=== PATIENT | male | born 1980 ===

== ENCOUNTER 2018-05-04 18:44 | Emergency (ER) | payer SELFPAY ==
[2018-05-04 18:44] VITALS: BMI 23.3
[2018-05-04 19:09] VITALS: BP 135/87; PULSE 73; RESP 20; TEMP 97.8; O2SAT 98
[2018-05-04] MEDS ORDERED: Tdap Vaccine 0.5 ml Vial (10-64 yrs) IM ONE (19:44)
[2018-05-04] MEDS ORDERED: Tetracaine 0.5% Ophth 2 ML BOTTLE OD ONE (19:45)
[2018-05-04] MEDS ORDERED: Fluorescein 1 mg Ophthalmic Strip OD ONE (19:50)
--- NOTE | 2018-05-04 19:52 | C.PDOC ---
History Of Present Illness 37 y/o male c/o pain and redness to right eye since yesterday; pt sts he was cutting metal and got a piece in his eye. last tdap unk. Time Seen by Provider: 05/04/18 19:39 Chief Complaint (Nursing): Eye Problem History Per: Patient History/Exam Limitations: no limitations Onset/Duration Of Symptoms: Days (2) Injury To Eye?: Yes Severity: Moderate Quality: Sharp Associated Symptoms: Pain, FB Sensation Past Medical History Reviewed: Historical Data, Nursing Documentation, Vital Signs Vital Signs: Last Vital Signs Temp 97.8 F 05/04/18 19:05 Pulse 73 05/04/18 19:05 Resp 20 05/04/18 19:05 BP 135/87 05/04/18 19:05 Pulse Ox 98 05/04/18 19:05 - Medical History PMH: No Chronic Diseases Surgical History: Appendectomy Family History: States: Unknown Family Hx - Social History Hx Tobacco Use: No Hx Alcohol Use: No Hx Substance Use: No - Immunization History Hx Tetanus Toxoid Vaccination: No Hx Influenza Vaccination: No Hx Pneumococcal Vaccination: No Review Of Systems Constitutional: Negative for: Fever, Chills Eyes: Positive for: Pain, Conjunctivae Inflammation. Negative for: Vision Change ENT: Negative for: Mouth Pain, Throat Pain Cardiovascular: Negative for: Chest Pain Skin: Negative for: Rash Neurological: Negative for: Weakness, Numbness Physical Exam - Physical Exam Appears: Non-toxic, No Acute Distress, Other (uncomfortable) Skin: Warm, Dry Head: Atraumatic, Normacephalic Eye(s): bilateral: PERRL, EOMI, right: Other (fluorescien uptake 7 oclock position and fb noted above pupil ,medial aspect, conjunctiva injected. ), left: Normal Inspection (3 mm lesion to left lateral lower lid) ED Course And Treatment O2 Sat by Pulse Oximetry: 98 Medical Decision Making Medical Decision Making: corneal abrasion noted at 7 o'clock position and fb noted at superiormedial aspect of pupil, 1 o'cockl position); tried to remove with qtip but unable. [address] De Souza; recommends antibiotic ointment in eye and patch applied; pt can be seen in his office at 4 pm tomorrow. Disposition Counseled Patient/Family Regarding: Studies Performed, Diagnosis, Need For Fo llowup - Disposition Referrals: Phil De Souza MD [Staff Provider] - Disposition: HOME/ ROUTINE Disposition Time: 21:32 Condition: GOOD Additional Instructions: Deje el parche en el susi derecho hasta que lo peterson el Dr. De Souza (oculista) maana a las 4 pm. [place] Tylenol o Motrin para el dolor si es necesario. Leave patch on right eye until seen by Dr De Souza (eye doctor) tomorrow at 4 pm. Take Tylenol or Motrin for pain if needed. Instructions: Foreign Body in Eye (DC), Corneal Abrasion (DC) Forms: Gen Discharge Inst [place], [facility] ([place]) - Clinical Impression Clinical Impression: Corneal abrasion, Foreign body of right eye
[2018-05-04] MEDS ORDERED: Fluorescein 1 mg Ophthalmic Strip ONE (20:04)
[2018-05-04] MEDS ORDERED: Tetracaine 0.5% Ophth (OR ONLY) ONE (20:04)
[2018-05-04] MEDS ORDERED: Tetanus/Diphtheria Toxoids 0.5 ml Syringe IM ONE (20:05)
[2018-05-04] MEDS ORDERED: Ciprofloxacin 0.3% OPTH SOLN OD STA (21:06)
[2018-05-04] MEDS ORDERED: Erythromycin 0.5% Ophth Oint 1 APPLIC/3.5 G OD STA (21:10)
[2018-05-04] MEDS ORDERED: Erythromycin 0.5% Ophth Oint 1 APPLIC/3.5 G ONE (21:19)
== END 2018-05-04 21:40 | disposition home or self-care (01) ==
LOC: C.ER 18:44
DX: T15.01XA Foreign body in cornea, right eye, initial encounter (principal); X58.XXXA Exposure to other specified factors, initial encounter